=== PATIENT | male | born 1940 | race Asian ===

== ENCOUNTER 2017-03-02 17:47 | Emergency (ER) | payer MEDICARE, MEDICAID ==
[~2017-03-02] VITALS: Ht 157.5 cm; Wt 49.9 kg
[2017-03-02 17:54] VITALS: BP 122/77
[2017-03-02 18:20] LABS: Basophils # (auto) 0.1 uL; CONDITION Y; Eosinophils # (auto) 0.4 uL; Eosinophils % (auto) 3.4 % (0.0-7.0); Hematocrit 35.6 % (41.0-53.0); Hemoglobin 11.7 g/dL (13.5-17.5); Mean Corpuscular Hemoglobin 29.3 pg (28.0-32.0); Mean Corpuscular Hgb Conc. 32.8 g/dL (32.0-36.0); Mean Corpuscular Volume 89.4 fL (80.0-100.0); Mean Platelet Volume 8.7 fL (7.4-10.4); Monocytes % (auto) 9.6 % (0.0-12.0); Neutrophils # (auto) 6.3 uL; Platelet Count (auto) 445 10^3/uL (140-450); Red Cell Distribution Width 15.2 % (11.6-16.0); White Blood Cell 10.8 10^3/uL (4.4-10.8)
[2017-03-02 18:40] LABS: Albumin 3.4 g/dL (3.4-5.0); Bilirubin, Total 0.4 mg/dL (0.2-1.0); Calcium 8.5 mg/dL (8.5-10.1); Potassium 3.3 mmol/L (3.5-5.1)
== END 2017-03-02 22:02 | disposition left against medical advice (07) ==
LOC: ER 17:55
DX: R07.9 Chest pain, unspecified (principal); M79.604 Pain in right leg; R06.02 Shortness of breath; Z53.21 Procedure and treatment not carried out due to patient leaving prior to being seen by health care provider
CPT/HCPCS: 36415; 80053; 84484; 85025; 93005

== ENCOUNTER 2017-03-03 06:21 | Emergency (ER) | payer MEDICARE, MEDICAID ==
[~2017-03-03] VITALS: Ht 157.5 cm; Wt 49.9 kg
[2017-03-03 09:06] VITALS: BP 127/79
[2017-03-03] MEDS ORDERED: HYDROcodone-ACET 10/325MG TAB PO ONE (10:00)
== END 2017-03-03 10:04 | disposition home or self-care (01) ==
LOC: ER 06:21
DX: R07.89 Other chest pain (principal); M79.604 Pain in right leg; Z87.891 Personal history of nicotine dependence; R51 Headache
CPT/HCPCS: 36415; 70450; 84484; 93971; 94761